=== PATIENT | female | born 1925 | race Caucasian/White ===

== ENCOUNTER → 2016-11-28 | Outpatient (CLI) | payer OTHER ==
[~2016-11-28] MED LIST: AMLO1CAP12 PO; APIX5TAB PO; CETI-158 PO; DOCU-30 PO; FISH400C3 PO; FURO-92 PO; FURO40TA6 PO; GLUC500T8 PO; LEVO125T5 PO; METO25TA2 PO; METO25TA35 PO/NG; MULT-516 PO; OXYC-302 PO; POTA10TA5 PO; SPIR25TA3 PO; VITA150T PO; WARF5TAB7 PO
== END | disposition home or self-care (01) ==
LOC: CFH 10:10
PROVIDERS: ATTEND Nurse Practitioner Family
DX: Z12.31 Encounter for screening mammogram for malignant neoplasm of breast (principal); M85.88 Other specified disorders of bone density and structure, other site; N95.8 Other specified menopausal and perimenopausal disorders
CPT/HCPCS: 77081; G0202

== ENCOUNTER 2017-03-03 07:48 | Day surgery (SDC) | payer OTHER ==
[~2017-03-03] VITALS: Ht 162.6 cm; Wt 69.5 kg
[~2017-03-03 07:48] MED LIST changes: +DOCU-131 PO; -DOCU-30 PO; +GLUC500T11 PO; -GLUC500T8 PO
[2017-03-03] MEDS ORDERED: SODIUM CHLORIDE 0.9% 1,000 ML IV SCH (08:24)
[2017-03-03 08:35] VITALS: BP 159/87
[2017-03-03 09:00] LABS: HEMOGLOBIN 12.5 g/dL (11.7-16.4); WHITE BLOOD COUNT 8.8 x10^3/uL (3.4-10)
[2017-03-03] MEDS ORDERED: GLUC-149 PO (09:02)
[2017-03-03] MEDS ORDERED: ATOR20TA9 PO (09:02)
[2017-03-03] MEDS ORDERED: FURO20TA3 PO (09:02)
[2017-03-03] MEDS ORDERED: METO25TA2 PO (09:02)
[2017-03-03] MEDS ORDERED: CHOL100011 PO (09:02)
[2017-03-03] MEDS ORDERED: POTA10CA PO (09:02)
[2017-03-03] MEDS ORDERED: AMLO2.5T PO (09:02)
[2017-03-03] MEDS ORDERED: FENTANYL PF 100 MCG/2ML ONE (09:15)
[2017-03-03 09:19] LABS: BLOOD UREA NITROGEN 20 mg/dL (7-18)
[2017-03-03] MEDS ORDERED: ROCURONIUM 10 MG/ML ONE (10:02)
[2017-03-03] MEDS ORDERED: PROPOFOL 10 MG/ML, 20ML ONE (10:02)
[2017-03-03] MEDS ORDERED: SUCCINYLCHOLINE 20 MG/ML, 10ML ONE (10:02)
[2017-03-03] MEDS ORDERED: DEXAMETHASONE 4 MG/ML, 1ML ONE (10:02)
[2017-03-03] MEDS ORDERED: ONDANSETRON 2MG/ML, 2ML ONE (10:02)
[2017-03-03] MEDS ORDERED: PHENYLEPHRINE 10 MG/ML ONE (10:02)
[2017-03-03] MEDS ORDERED: LABETALOL 5MG/ML, 20ML IV PRN (12:00)
[2017-03-03] MEDS ORDERED: MIDAZOLAM 1 MG/ML, 2ML IV PRN (12:00)
[2017-03-03] MEDS ORDERED: OXYcodone 5 MG/5 ML ORAL.SOL UDC PO PRN (12:00)
[2017-03-03] MEDS ORDERED: ALBUTEROL SULFATE 2.5 MG/3 ML NPPB PRN (12:00)
[2017-03-03] MEDS ORDERED: PROMETHAZINE 25 MG/ML, 1ML IV PRN (12:00)
[2017-03-03] MEDS ORDERED: ONDANSETRON 2MG/ML, 2ML IVPush PRN (12:00)
[2017-03-03] MEDS ORDERED: MEPERIDINE/PF 25MG/0.5ML IVPush PRN (12:00)
[2017-03-03] MEDS ORDERED: hydrALAzine 20 MG/ML, 1ML IV PRN (12:00)
[2017-03-03] MEDS ORDERED: FENTANYL PF 100 MCG/2ML IV PRN (12:00)
[2017-03-03] MEDS ORDERED: HYDROmorphone 1 MG/ML, 1ML IV PRN (12:00)
[2017-03-03] MEDS ORDERED: ACETAMINOPHEN 325 MG TABLET PO PRN (12:00)
== END 2017-03-03 16:39 ==
LOC: CACL 07:48
PROVIDERS: ATTEND Internal Medicine Cardiovascular Disease
DX: I48.92 Unspecified atrial flutter (principal); I10 Essential (primary) hypertension; E03.9 Hypothyroidism, unspecified; Z88.0 Allergy status to penicillin; Z88.8 Allergy status to other drugs, medicaments and biological substances; Z91.011 Allergy to milk products
CPT/HCPCS: 36415; 71020; 80048; 85025; 85610; 85730; 93312; 93321; 93325; 93613; 93621; 93653; C1730; C1731; C1732; C1894; J0330; J1100; J2370; J2405; J2704; J3010

== ENCOUNTER → 2017-04-22 | Outpatient (CLI) | payer OTHER ==
[~2017-04-22] MED LIST changes: +AMLO2.5T PO; +ATOR20TA9 PO; +CHOL100011 PO; +FURO20TA3 PO; +GLUC-149 PO; +POTA10CA PO
== END | disposition home or self-care (01) ==
LOC: CFH 07:37
PROVIDERS: ATTEND Internal Medicine Cardiovascular Disease
DX: I08.1 Rheumatic disorders of both mitral and tricuspid valves (principal); I10 Essential (primary) hypertension; E78.5 Hyperlipidemia, unspecified; I48.91 Unspecified atrial fibrillation; I48.92 Unspecified atrial flutter
CPT/HCPCS: 93306